=== PATIENT | male | born 1960 | race Caucasian/White ===

== ENCOUNTER 2021-06-13 13:16 | Outpatient (CLI) | payer OTHER | END 2021-06-13 13:17 | disposition home or self-care (01) | LOC: CT 13:16 | PROVIDERS: ATTEND Internal Medicine Hospice and Palliative Medicine | DX: R10.30 Lower abdominal pain, unspecified (principal); K57.32 Diverticulitis of large intestine without perforation or abscess without bleeding | CPT/HCPCS: 74177 ==

== ENCOUNTER 2021-11-08 12:16 | Outpatient (CLI) | payer OTHER ==
[2021-11-08 13:23] LABS: #Basophils 0.1 10x3/uL (0.0-0.2); #Eosinphils 0.1 10x3/uL (0.0-0.5); #Monocytes 0.5 10x3/uL (0.0-1.1); %Eosinophils 1.8 % (0.0-6.0); %Lymphocytes 34.1 % (18.0-47.0); %Monocytes 7.5 % (0.0-10.0); Hemoglobin 14.4 g/dL (13.5-17.5); Mean Corpuscular HGB CONC 33.3 g/dL (32.0-36.0); Mean Corpuscular Hemoglobin 29.3 pg (27.0-33.0); Mean Corpuscular Volume 88.2 fl (81.2-95.1); Mean Platelet Volume 9.3 fl (7.4-10.4); Platelet Count 302 10x3/uL (150-450); RBC Distribution Width 14.2 % (11.5-14.5); Red Blood Cell (RBC) Count 4.91 10x6/uL (4.32-5.72); White Blood Cell (WBC) Count 7.2 10x3/uL (3.5-10.5)
[2021-11-08 13:59] LABS: ALT (SGPT) 21 U/L (8-55); AST (SGOT) 17 U/L (5-34); Albumin 4.2 g/dL (3.5-5.0); Alkaline Phosphatase 56 U/L (40-110); Anion Gap 15 mmol/L (10-20); BUN (Urea Nitrogen) 8 mg/dL (8.4-25.7); Bilirubin, Total 1.1 mg/dL (0.2-1.2); Calc. Creatinine Clearance 0 mL/min (70-130); Calcium 8.9 mg/dL (7.8-10.44); Carbon Dioxide 21 mmol/L (22-29); Chloride 106 mmol/L (98-107); Estimated GFR 102; Globulin 2.5 g/dL (2.4-3.5); Glucose 88 mg/dL (70-105); Potassium 4.1 mmol/L (3.5-5.1); Protein, Total 6.7 g/dL (6.0-8.3); Sodium 138 mmol/L (136-145)
[2021-11-08 19:54] LABS: Hemoglobin A1c 5.4 % (4.0-6.0)
== END 2021-11-08 12:17 | disposition home or self-care (01) ==
LOC: LABBT 12:16
PROVIDERS: ATTEND Specialist
DX: Z01.818 Encounter for other preprocedural examination (principal); K21.9 Gastro-esophageal reflux disease without esophagitis; R68.81 Early satiety; Z20.822 Contact with and (suspected) exposure to COVID-19; Z87.19 Personal history of other diseases of the digestive system
CPT/HCPCS: 80053; 83036; 85025; 87811; 93005; 93010

== ENCOUNTER 2021-11-08 12:30 | Inpatient (IN) | payer OTHER ==
[2021-11-12 13:43] VITALS: BMI 24.5
[2021-11-13] MEDS ORDERED: Ketorolac Tromethamine 30 MG/ML VIAL ONE (06:40)
[2021-11-13] MEDS ORDERED: Acetaminophen 500 MG TAB ONE (06:40)
[2021-11-13] MEDS ORDERED: Gabapentin 300 MG CAP ONE (06:40)
[2021-11-13] MEDS ORDERED: fentaNYL Citrate/PF 100 MCG/2 ML SYRINGE ONE (06:44)
[2021-11-13] MEDS ORDERED: Lidocaine 1% w/Epinephrine 1:100K 20 ML VIAL ONE (06:53)
[2021-11-13] MEDS ORDERED: Bupivacaine 0.25% HCL 30 ML VIAL ONE (06:53)
[2021-11-13] MEDS ORDERED: Midazolam HCl 2 mg/2 ml Vial ONE (07:06)
[2021-11-13] MEDS ORDERED: Lidocaine 1% (PF) 30 ML VIAL ONE (07:06)
[2021-11-13] MEDS ORDERED: Fentanyl 100 MCG/2 ML VIAL ONE ×2 (07:06→11:16)
[2021-11-13] MEDS ORDERED: Sodium Chloride 0.9% 100 ML ONE (07:24)
[2021-11-13] MEDS ORDERED: cefOXitin 2 GM VIAL ONE (07:24)
[2021-11-13] MEDS ORDERED: Glycopyrrolate 0.2 MG/ML 5 ML SYRINGE ONE (07:41)
[2021-11-13] MEDS ORDERED: PROPOFOL 200 MG/20 ML VIAL ONE (07:41)
[2021-11-13] MEDS ORDERED: Phenylephrine 10 MG/ML VIAL ONE (07:41)
[2021-11-13] MEDS ORDERED: Lidocaine 1% PF 5 ML VIAL ONE (07:41)
[2021-11-13] MEDS ORDERED: Dexamethasone 20 MG/5 ML VIAL ONE (07:41)
[2021-11-13] MEDS ORDERED: Bupivacaine HCl 0.5%/Epinephrine 1:200,000/PF 30 ml Vial ONE (07:41)
[2021-11-13] MEDS ORDERED: Ondansetron PF 4 MG/2 ML Vial ONE (07:41)
[2021-11-13] MEDS ORDERED: Rocuronium Bromide 10 MG/ML (10ML VIAL) ONE (07:41)
[2021-11-13] MEDS ORDERED: Promethazine HCl 25 MG/ML VIAL IVPB PRN (09:04)
[2021-11-13] MEDS ORDERED: Ketorolac Tromethamine 30 MG/ML VIAL IVP PRN (09:04)
[2021-11-13] MEDS ORDERED: HYDROmorphone 2 MG/ML VIAL SLOW IVP PRN (09:04)
[2021-11-13] MEDS ORDERED: Promethazine HCl 25 MG/ML VIAL IM PRN ×2 (09:04→13:38)
[2021-11-13] MEDS ORDERED: Ondansetron HCl/PF 4 MG/2 ML Vial IVP PRN (09:04)
[2021-11-13] MEDS ORDERED: HYDROmorphone 0.5 MG/0.5 ML SYRINGE ONE ×2 (11:01→11:16)
[2021-11-13] MEDS ORDERED: Promethazine HCl 25 MG/ML VIAL ONE (11:23)
[2021-11-13] MEDS ORDERED: Morphine 2 MG/ML VIAL SLOW IVP PRN ×2 (11:31→12:29)
[2021-11-13] MEDS ORDERED: Ondansetron PF 4 MG/2 ML Vial IVP PRN ×2 (11:31→13:38)
[2021-11-13] MEDS ORDERED: hydrALAZINE 20 MG/ML VIAL SLOW IVP PRN (11:31)
[2021-11-13] MEDS ORDERED: Morphine 4 MG/ML VIAL SLOW IVP PRN (11:31)
[2021-11-13] MEDS: Acetaminophen 500 MG TAB PO SCH ×2 (12:00→16:35)
[2021-11-13] MEDS: Ketorolac Tromethamine 30 MG/ML VIAL IVP SCH ×2 (12:00→16:36)
[2021-11-13] MEDS ORDERED: diphenhydrAMINE 50 MG/ML VIAL IVP PRN (13:38)
[2021-11-13] MEDS ORDERED: Zolpidem Tartrate 5 MG TAB PO PRN (13:38)
[2021-11-13] MEDS ORDERED: diphenhydrAMINE 25 MG CAP PO PRN (13:38)
[2021-11-13] MEDS ORDERED: Naloxone HCl 0.4 mg/ml Vial IV PRN (13:38)
[2021-11-13] MEDS ORDERED: diphenhydrAMINE 50 MG/ML VIAL IM PRN (13:38)
[2021-11-13] MEDS ORDERED: fentaNYL Citrate/PF 2,000 MCG in Sodium Chloride 0.9% 60 ML IV PRN (13:38)
[2021-11-13] MEDS ORDERED: Communication Order-Pharmacy FS SCH (13:45)
[2021-11-13] MEDS: D5 1/2 NS w/20 mEq KCL 1,000 ML IV SCH ×2 (16:34→20:01)
[2021-11-13] MEDS: Gabapentin 300 MG CAP PO SCH ×2 (16:36→20:02)
[2021-11-13] MEDS: cefOXitin 2 GM in Sodium Chloride 0.9% 100 ML IVPB SCH (18:02)
[2021-11-13] MEDS: Enoxaparin Sodium 40 MG/0.4 ML SYRINGE SC SCH (20:01)
[2021-11-13] MEDS: Famotidine 20 MG TAB PO SCH (20:02)
[2021-11-14] MEDS: Acetaminophen 500 MG TAB PO SCH ×5 (00:23→23:57)
[2021-11-14] MEDS: Ketorolac Tromethamine 30 MG/ML VIAL IVP SCH ×5 (00:23→23:57)
[2021-11-14] MEDS: cefOXitin 2 GM in Sodium Chloride 0.9% 100 ML IVPB SCH (02:24)
[2021-11-14] MEDS: D5 1/2 NS w/20 mEq KCL 1,000 ML IV SCH ×2 (05:58→08:56)
[2021-11-14 06:08] LABS: #Lymphocytes 1.7 thou/uL (1.20-3.40); #Neutrophils 5.3 thou/uL (1.40-6.50); %Basophils 0.2 % (0.0-1.0); %Eosinophils 0.1 % (0.0-10.0); %Lymphocytes 21.4 % (21.0-51.0); %Monocytes 11.9 % (0.0-10.0); %Neutrophils 66.3 % (42.0-75.0); Hemoglobin 10.9 g/dL (14.0-18.0); Mean Corpuscular HGB CONC 32.8 g/dL (32.0-36.0); Mean Corpuscular Hemoglobin 30.8 pg (27.0-31.0); Platelet Count 224 thou/uL (130-400); RBC Distribution Width 13.2 % (11.5-14.5); Red Blood Cell (RBC) Count 3.54 mill/uL (4.70-6.10); White Blood Cell (WBC) Count 7.9 thou/uL (4.8-10.8)
[2021-11-14 06:39] LABS: Anion Gap 14 mmol/L (10-20); BUN (Urea Nitrogen) 6 mg/dL (8.4-25.7); Calc. Creatinine Clearance 105 mL/min (70-130); Calcium 8.3 mg/dL (7.8-10.44); Carbon Dioxide 22 mmol/L (22-29); Chloride 109 mmol/L (98-107); Estimated GFR 103; Glucose 122 mg/dL (70-105); Potassium 4.7 mmol/L (3.5-5.1); Sodium 140 mmol/L (136-145)
[2021-11-14] MEDS: Gabapentin 300 MG CAP PO SCH ×3 (08:56→20:24)
[2021-11-14] MEDS: Famotidine 20 MG TAB PO SCH ×2 (08:56→20:24)
[2021-11-14] MEDS ORDERED: D5 1/2 NS w/20 mEq KCL 1,000 ML IV SCH (14:08)
[2021-11-14] MEDS: Enoxaparin Sodium 40 MG/0.4 ML SYRINGE SC SCH (20:24)
[2021-11-15] MEDS: Ketorolac Tromethamine 30 MG/ML VIAL IVP SCH (05:35)
[2021-11-15] MEDS: Acetaminophen 500 MG TAB PO SCH ×2 (05:35→12:32)
[2021-11-15 08:33] VITALS: BP 151/82; TEMP 97.3
[2021-11-15] MEDS ORDERED: Ibuprofen 600 MG TAB PO PRN (09:06)
[2021-11-15] MEDS: Gabapentin 300 MG CAP PO SCH ×2 (09:22→14:18)
[2021-11-15] MEDS: HYDROcodone/Acetaminophen 5/325 mg Tablet PO PRN ×2 (09:23→14:18)
[2021-11-15] MEDS: Famotidine 20 MG TAB PO SCH (09:26)
== END 2021-11-15 15:12 | disposition home or self-care (01) | DRG 331 ==
LOC: SURG A 11-13 05:56 → SJJU 11-13 15:42
PROVIDERS: ADMIT Specialist; ATTEND Specialist
PROC: 0DTN0ZZ Resection of Sigmoid Colon, Open Approach (ICD-10-PCS; principal; 2021-11-13)
PROC: 0DJD4ZZ Inspection of Lower Intestinal Tract, Percutaneous Endoscopic Approach (ICD-10-PCS; 2021-11-13)
PROC: 3E0T3BZ Introduction of Anesthetic Agent into Peripheral Nerves and Plexi, Percutaneous Approach (ICD-10-PCS; 2021-11-13)
DX: K57.20 Diverticulitis of large intestine with perforation and abscess without bleeding (principal); Z20.822 Contact with and (suspected) exposure to COVID-19; F32.A Depression, unspecified; F17.210 Nicotine dependence, cigarettes, uncomplicated; K21.9 Gastro-esophageal reflux disease without esophagitis; Z53.31 Laparoscopic surgical procedure converted to open procedure; Z87.19 Personal history of other diseases of the digestive system; Z87.820 Personal history of traumatic brain injury; Z82.49 Family history of ischemic heart disease and other diseases of the circulatory system; Z80.9 Family history of malignant neoplasm, unspecified
CPT/HCPCS: 36415; 36416; 80048; 85025; 88307; A4649; J0694; J1100; J1170; J1650; J1885; J2001; J2250; J2370; J2405; J2550; J2704; J2710; J3010; J3480; J3490; S0020